=== PATIENT | female | born 1990 | race Caucasian/White ===

== ENCOUNTER → 2016-07-12 | Outpatient (CLI) | payer OTHER ==
--- NOTE | 2016-07-12 12:54 | US ---
Transabdominal and Transvaginal Pelvic Ultrasound History: Missing IUD strings, amenorrhea due to IUD, IUD placed in November 2014. Comparison: None available. Findings: Transabdominal: The uterus appears normal. An IUD is noted in the uterus. The bladder is normal. Transvaginal: Uterus measures 7.8 x 3.2 x 4.4 cm. The endometrium is partially obscured by an IUD, wh ich is in good position. The visible endometrium is homogeneous and measures 5 mm. Trace simple fluid is present in the endocervical canal. The left ovary measures 2.2 x 1.6 x 3.4 cm. The right ovary me asures 3.1 x 3.0 x 4.1 cm. A 2.8 x 2.2 x 3.0 cm simple cyst is present in the right ovary. Normal a rterial blood flow is documented to both ovaries by Doppler ultrasound. There is trace free fluid. Impression: 1. Normal pelvic ultrasound. 2. IUD in good position.
== END ==
LOC: FIMAGING 10:57
PROVIDERS: ATTEND Physician Assistant
DX: Z97.5 Presence of (intrauterine) contraceptive device (principal)